=== PATIENT | female | born 1970 | race Caucasian/White ===

== ENCOUNTER 2016-12-17 12:00 | Emergency (ER) | payer MEDICAID ==
[~2016-12-17] VITALS: Ht 167.6 cm; Wt 67.0 kg
[2016-12-17 12:03] VITALS: Ht 167.6 cm; Wt 67.0 kg
--- NOTE | 2016-12-17 12:43 | ERD ---
ER Documentation Chief Complaint Chief Complaint Sent from [facility] for generalized pain HPI 46-year-old female patient with no significant past medical history presents to the ED with generalized joint pain that has been going on intermittently for the past 10 months. Patient reports that she has been taking ibuprofen, osteo- EZ, magnesium for her symptoms. States that the pain feels achy and rates the pain a 10 out of 10 when she does experience pain. Patient was seen at [facility] and obtained blood work in April 2016 and picked up her copy today and was sent here by the urgent care for a rheumatology referral. Patient has a positive DREAD screen as well as a slightly elevated rheumatoid factor. Patient states that she is here to see a drilling inspector. Denies any injuries or trauma. Denies any decrease range of motion, increased redness, fever, chills, saddle anesthesia, urine or bowel incontinence, abdominal pain, nausea, vomiting, headache, weakness, numbness or tingling. ROS All systems reviewed and are negative except as per history of present illness. Allergies Allergies: Coded Allergies: No Known Allergy (Unverified , 12/17/16) Physical Exam Vitals Vital Signs Date Time Temp Pulse Resp B/P Pulse Ox O2 Delivery O2 Flow Rate FiO2 12/17/16 12:03 98.9 81 20 113/74 98 Physical Exam Const: [id number], well-nourished. In no acute distress. Head: Atraumatic, normocephalic Eyes: Normal Conjunctiva without injection ENT: Normal external ear, nose and mouth. Neck: Full range of motion. No meningismus. Resp: Clear to auscultation bilaterally. No wheezing, rhonchi, rales, or crackles. No accessory muscle use. No retractions. Cardio: Regular rate and rhythm, no murmurs Skin: No petechiae or rashes Back: No midline tenderness. No CVA tenderness. Ext: No cyanosis, or edema. Cap refill less than 2 seconds. Distal pulses intact bilaterally. Full range of motion of all upper and lower extremity joints with flexion, extension. No erythema or warmth to touch of any joint spaces. No edema noted. No deformities. No current tenderness to palpation of point of upper and lower extremities. Neur: Awake and alert. Normal gait and coordination. Muscle strength 5/5. Sensation intact bilaterally. Psych: Normal Mood and Affect Procedures/MDM 46-year-old female patient with no significant past medical history presents to the ED complaining of joint pain that has been going on intermittently for the past 10 months. Patient is afebrile and nontoxic-appearing. Patient has normal vital signs. Patient was seen at [facility] and obtained blood work which showed a positive DREAD as well as slightly elevated rheumatoid factor. RF 14.1. Patient was strictly instructed to follow-up with a drilling inspector for further care and treatment. This was discussed with my supervising physician, Dr. Sanchez who agreed with the management and discharge plan. Patient has full range of motion of all upper and lower extremities. Patient is ambulating without difficulty. Patient is neurovascularly intact. Low suspicion for fractures, dislocations, compartment syndrome, neurologic injury, vascular injury, open joint, open fracture, tendon laceration, septic arthritis, osteomyelitis, DVT, foreign body, or other emergent conditions. Instructed patient to return to the ED sooner for any worsening symptoms - increased redness/swelling of joints, fever, weakness, etc. Patient's questions were answered. Patient understood and agreed with discharge plan. Patient discharged stable. Disclaimer: Inadvertent spelling and grammatical errors are likely due to EHR/ dictation software use and do not reflect on the overall quality of patient care. Also, please note that the electronic time recorded on this note does not necessarily reflect the actual time of the patient encounter. Departure Diagnosis: Primary Impression: Joint pain Joint pain location: unspecified Qualified Code: M25.50 - Arthralgia, unspecified joint Additional Impression: Chronic pain Chronic pain type: other chronic pain Qualified Code: G89.29 - Other chronic pain Condition: Stable Patient Instructions: What Is Rheumatoid Arthritis?, Living with Rheumatoid Arthritis, Rheumatoid Factor (Blood) Referrals: REPLACED BY [facility] YOU HAVE RECEIVED A MEDICAL SCREENING EXAM AND THE RESULTS INDICATE THAT YOU DO NOT HAVE A CONDITION THAT REQUIRES URGENT TREATMENT IN THE EMERGENCY DEPARTMENT. FURTHER EVALUATION AND TREATMENT OF YOUR CONDITION CAN WAIT UNTIL YOU ARE SEEN IN YOUR DOCTORS OFFICE WITHIN THE NEXT 1-2 DAYS. IT IS YOUR RESPONSIBILITY TO MAKE AN APPOINTMENT FOR FOLOW-UP CARE. IF YOU HAVE A PRIMARY DOCTOR --you should call your primary doctor and schedule an appointment IF YOU DO NOT HAVE A PRIMARY DOCTOR YOU CAN CALL OUR PHYSICIAN REFERRAL HOTLINE AT IF YOU CAN NOT AFFORD TO SEE A PHYSICIAN YOU CAN CHOSE FROM THE FOLLOWING [facility] [address] [facility] [address] [facility] [address] [facility] [address] [facility] [address] [address] [facility] [facility] YOU HAVE RECEIVED A MEDICAL SCREENING EXAM AND THE RESULTS INDICATE THAT YOU DO NOT HAVE A CONDITION THAT REQUIRES URGENT TREATMENT IN THE EMERGENCY DEPARTMENT. FURTHER EVALUATION AND TREATMENT OF YOUR CONDITION CAN WAIT UNTIL YOU ARE SEEN IN YOUR DOCTORS OFFICE WITHIN THE NEXT 1-2 DAYS. IT IS YOUR RESPONSIBILITY TO MAKE AN APPOINTMENT FOR FOLOW-UP CARE. IF YOU HAVE A PRIMARY DOCTOR --you should call your primary doctor and schedule and appointment IF YOU DO NOT HAVE A PRIMARY DOCTOR YOU CAN CALL OUR PHYSICIAN REFERRAL HOTLINE AT . IF YOU CAN NOT AFFORD TO SEE A PHYSICIAN YOU CAN CHOSE FROM THE FOLLOWING [facility] INSTITUTIONS[facility] [address] [place] [address] [facility] [address] [place] [address] [facility] [address] [place] [address] [facility]. Recent positive DREAD, and RF likely RA. Additional Instructions: Call your primary care doctor TOMORROW for an appointment during the next 2-3 days for a referral to see a drilling inspector. See the doctor sooner or return here if your condition worsens before your appointment time - fever, loss of range of motion of joints, injuries, trauma, increased redness or swelling of joints, etc. ROSALIA EMANUEL PA-C Dec 17, 2016 12:43
== END 2016-12-17 12:52 | disposition home or self-care (01) ==
LOC: FTE 12:00
DX: M25.50 Pain in unspecified joint (principal); G89.29 Other chronic pain
CPT/HCPCS: 99282